=== PATIENT | female | born 1955 | race Caucasian/White ===

== ENCOUNTER → 2017-12-12 15:01 | Outpatient (CLI) | payer MEDICAID, SELFPAY ==
[2017-12-12 17:29] LABS: ALB/GLOB Ratio 0.8 RATIO (0.9-2.4); AST(SGOT) 14 U/L (15-37); Alanine Aminotransfer ALT/SGPT 24 U/L (13-56); Albumin, Serum 3.2 g/dL (3.2-5.0); Alkaline Phosphatase 94 U/L (45-117); Anion Gap 11 (5-15); BUN 15 mg/dL (7-18); BUN/Creat Ratio 14.2 RATIO (10-20); Calcium,Total 8.6 mg/dL (8.5-10.1); Chloride 100 mmol/L (98-107); Creatinine, Serum 1.06 mg/dL (0.55-1.02); EST Glomerular Filtration Rate 56 mL/min (>60); Est Glom Filt Rate - Afr Amer 68 mL/min (>60); Glucose 176 mg/dL (74-106); Potassium 4.3 mmol/L (3.5-5.1); Protein, Total 7.2 g/dL (6.4-8.2); Sodium Level 140 mmol/L (136-145)
== END ==
PROVIDERS: Family Provider Family Medicine; PCP Family Medicine; Visit Provider Family Medicine
DX: E11.9 Type 2 diabetes mellitus without complications (principal); J44.9 Chronic obstructive pulmonary disease, unspecified; M79.7 Fibromyalgia
CPT/HCPCS: 36415; 80053; 83036

== ENCOUNTER → 2020-03-04 14:50 | Outpatient (CLI) | payer MEDICAID, SELFPAY ==
[2020-03-04 14:58] VITALS: BMI 32.9
[2020-03-04 17:21] LABS: Absolute Lymphocyte Count 1.75 X10^3/uL (0.83-4.51); Absolute Neutrophil Count 8.4 X10^3/uL (2.0-7.7); Basophil# 0.06 X10^3/uL; Basophil% 0.5 % (0-1); Eosinophil# 0.08 X10^3/uL; Eosinophils% 0.7 % (0-5); Hematocrit 40.7 % (37-47); Hemoglobin 12.1 g/dL (12.0-15.0); Lymphocyte # 1.75 X10^3/ul (4.0); Lymphocyte % 15.9 % (19-41); Mean Corp Hgb Conc 29.7 g/dL (32-36); Mean Corpuscular Hgb 27.9 pg (27.0-32.0); Mean Platelet Vol. 10.7 fl (6.2-12.0); Monocyte# 0.63 X10^3/uL; Monocyte% 5.7 % (0-10); NRBC Flagged by Analyzer 0 % (0-5); Neutrophil # 8.38 X10^3/uL (2.7-7.7); Neutrophil % 76.1 % (47-70); Platelet Count 344 K/mm3 (150-450); RBC Distribution Width CV 13.1 % (11.6-14.6); RBC Distribution Width SD 45.1 fl (35.1-43.9); Red Blood Count 4.33 M/mm3 (4.2-5.4)
[2020-03-04 17:42] LABS: ALB/GLOB Ratio 0.8 RATIO (0.9-2.4); AST(SGOT) 11 U/L (15-37); Alanine Aminotransfer ALT/SGPT 19 U/L (13-56); Albumin, Serum 3.2 g/dL (3.2-5.0); Alkaline Phosphatase 124 U/L (45-117); Anion Gap 5 (5-15); BUN 17 mg/dL (7-18); BUN/Creat Ratio 16.7 RATIO (10-20); Chloride 94 mmol/L (98-107); Cholesterol 205 mg/dL (200); Creatinine, Serum 1.02 mg/dL (0.55-1.02); EST Glomerular Filtration Rate 58 mL/min (>60); Est Glom Filt Rate - Afr Amer 70 mL/min (>60); Glucose 326 mg/dL (74-106); High Density Lipoprotein 60 mg/dL; Potassium 4.3 mmol/L (3.5-5.1); Protein, Total 7.2 g/dL (6.4-8.2); Sodium Level 137 mmol/L (136-145); Triglycerides 367 mg/dL; Very Low Density Lipoprotein 73 mg/dL (5-40)
[2020-03-04 17:46] LABS: Hemoglobin A1c 10.7 % (3.8-5.6)
== END ==
PROVIDERS: PCP Family Medicine; Referring Provider Family Medicine; Visit Provider Family Medicine
DX: E11.40 Type 2 diabetes mellitus with diabetic neuropathy, unspecified (principal)
CPT/HCPCS: 36415; 80053; 80061; 83036; 85025

== ENCOUNTER 2020-11-06 10:45 | Emergency (ER) | payer MEDICAID, SELFPAY ==
[2020-07-29 09:16] VITALS: BMI 32.9
[2020-11-06 10:46] VITALS: BP 90/52; PULSE 96; RESP 18; TEMP 36.2; O2SAT 94; BMI 26.9
--- NOTE | 2020-11-06 11:13 | EDS_ITS ---
HPI History of Present Illness Chief Complaint: Shortness of Breath Detail of Chief Complaint: Fall with injury to right posterior ribs Informant: patient Narrative Narrative: Patient presents to the emergency department after sustaining a fall last evening. Patient states that she was at her daughter's house and tripped on the rug in front of the toilet falling into the tub and injuring her right posterior ribs. She denies loss of consciousness. She complains of pain with deep breath now. She states that she is always short of breath because she has COPD. She is normally on 4 L of home O2. Patient does not think she hit her he ad. She denies headache or neck pain. She denies abdominal pain. Prior similar symptoms: No [facility] Medical History (Updated 11/06/20 @ 12:[address] Mikhail Patel DO) Arthritis Back problem Chronic pain COPD (chronic obstructive pulmonary disease) CVA (cerebral vascular accident) Diabetes Diabetic neuropathy Fibromyalgia Lung cancer Pneumonia Home Medications glipizide 2.5 mg tablet, extended release 24 hr 2.5 mg PO DAILY #90 tab 05/06/19 [Rx Last Taken Unknown] blood sugar diagnostic ea 05/14/19 [History Last Taken Unknown] blood-glucose meter #1 ea 05/14/19 [Rx Last Taken Unknown] lancets 30 gauge ea 05/14/19 [History Last Taken Unknown] fluticasone propionate 50 mcg/actuation nasal spray,suspension 2 spray INTRANASAL DAILY #15.8 g 11/18/19 [Rx Last Taken Unknown] mometasone-formoterol HFA 200 mcg-5 mcg/actuation aerosol inhaler 2 puff INHALATION BID #13 g 12/24/19 [Rx Last Taken Unknown] albuterol sulfate 90 mcg/actuation aerosol inhaler 2 puff INHALATION Q6H PRN #18 g 01/23/20 [Rx Last Taken Unknown] hydrochlorothiazide 12.5 mg capsule 12.5 mg PO QDAY #90 cap 01/23/20 [Rx Last Taken Unknown] olopatadine 0.2 % eye drops 1 drp OPHTHALMIC DAILY #2.5 ml 03/04/20 [Rx Last Taken Unknown] glipizide 2.5 mg tablet, extended release 24 hr 2.5 mg PO DAILY #90 tab 03/09/20 [Rx Last Taken Unknown] metformin 500 mg tablet 500 mg PO BID #180 tab 05/13/20 [Rx Last Taken Unknown] sitagliptin 100 mg tablet 100 mg PO DAILY #90 tab 06/07/20 [Rx Last Taken Unknown] atorvastatin 20 mg tablet 20 mg PO DAILY #90 tab 07/29/20 [Rx Last Taken Unknown] clopidogrel 75 mg tablet 75 mg PO DAILY 08/18/20 [History Last Taken Unknown] sertraline 50 mg tablet 50 mg PO DAILY #90 tablet 08/18/20 [Rx Last Taken Unknown] gabapentin 600 mg tablet See Rx Instructions .ROUTE .COMPLEX #180 unspecified 10/19/20 [Rx Last Taken Unknown] dulaglutide 1.5 mg/0.5 mL subcutaneous pen injector 1.5 mg SC QWEEK #2 ml 10/26/20 [Rx Last Taken Unknown] zolpidem 10 mg tablet 10 mg PO QHS PRN #30 tab 11/02/20 [Rx Last Taken Unknown] hydrocodone-acetaminophen 1 tab PO Q4H PRN PRN 2 Days #15 tablet 11/06/20 [Rx Last Taken Unknown] Allergy/AdvReac Type Severity Reaction Status Date / Time No Known Allergies Allergy Verified 11/06/20 10:46 Family History Mother Alcohol abuse Angina pectoris Anxiety Arthritis Depression Myocardial infarction Heart disease Mental disorder CVA (cerebral vascular accident) Suicide attempt Father Myocardial infarction Hypertension CVA (cerebral vascular accident) Grandmother Arthritis Surgical History History of cholecystectomy History of hysterectomy History of right common carotid artery stent placement Social History (Updated 08/18/20 @ 14:[address] Isak Taylor DO) Smoking Status: Former smoker how long ago did patient quit smokin alcohol intake: never substance use type: does not use what type of physical activity do you participate in: none ROS ROS ED Constitutional Constitutional ED: Reports systems reviewed and no addt'l complaints, except as documented; Denies body ache(s), change in weight or chills Eyes Eyes: Denies acute decrease in peripheral vision, change in vision, double vision or loss of vision ENT ENT ED: Reports none; Denies ear pain, lip swelling, loss taste/smell, neck pain, otalgia or sore throat Cardiovascular Cardiovascular: Reports none; Denies abdominal pain, chest pain with activity, leg edema, lightheadedness, palpitations, rapid heart rate or syncope Respiratory/Chest Respiratory/Chest: Reports none; Denies change in mental status, dry cough, dyspnea, hemoptysis, shortness of breath at rest or shortness of breath with exertion Gastrointestinal Gastrointestinal: Reports none; Denies abdominal pain, change in stool character, diarrhea, hematemesis, hematochezia, melena, rectal bleeding or vomiting Genitourinary Genitourinary ED: Reports none; Denies abdominal discomfort, anuria, dysuria, genital pain or polyuria Musculoskeletal Musculoskeletal: Reports none and other Details: Back pain/right posterior rib pain ; Denies arthralgias, back pain, difficulty walking, extremity pain, muscle weakness or myalgias Integumentary Reports none; Denies abscess or rash Neurologic Neurologic: Reports none; Denies abnormal gait, confusion, focal weakness, frequent falls, headache(s), loss of vision, numbness, paresthesias, radicular pain, vertigo or weakness Psychiatric Psychiatric: Reports systems reviewed and no addt'l complaints, except as documented and none; Denies behavioral changes, confusion, difficulty concentrating, hallucinations, suicidal ideation, tactile hallucinations or visual hallucinations Endocrine Endocrinology: Denies none, cold intolerance, excessive sweating, fatigue or heat intolerance Hematologic/Lymphatic Hematologic/Lymphatic: Reports none; Denies anemia, easy bleeding or easy bruising Allergic/Immunologic Allergic/Immunologic ED: Denies as per HPI, none, lip swelling, mouth swelling, throat swelling, tongue swelling or hives EXAM Physical Exam Const Vital Signs: 11/06/20 10:46 11/06/20 11:25 Temperature 97.2 F L Temperature Source Temporal Pulse Rate 96 Respiratory Rate 18 Respiratory Effort Normal Non-Labored Respiratory Depth Normal Respiratory Pattern Normal Blood Pressure 90/52 L Blood Pressure Mean 64 Pulse Ox 94 Oxygen Delivery Method Nasal Cannula Nasal Cannula Oxygen Flow Rate (L/min) 4 4 Positive well nourished and well developed General Appearance ED: well developed and NAD HEENT Reports TM's clear and moist mucous membranes normocephalic and atraumatic; Negative for trauma or tenderness Tympanic Membrane ED: Yes TM's clear Eyes PERRL and EOMs intact bilaterally General Eye ED: Negative for pale conjunctiva or scleral icterus Neck no lymphadenopathy, supple and no JVD General: Negative for tenderness Chest Wall inspection of chest normal and palpation of chest normal Chest: Negative for tenderness Resp normal respiratory effort and clear to auscultation bilaterally Effort and Inspection: Negative for respiratory distress or pain with movement Auscultation: Negative for rhonchi, wheezes or diminished lung sounds Cardio regular rate, regular rhythm, S1 normal heart sound, S2 normal heart sound and no murmurs Peripheral Pulses: pulses 2+ throughout GI normal to inspection, nondistended, normoactive bowel sounds, soft to palpation, non-tender, non-distended and no masses Back/Spine no CVA tenderness and no thoracic nor lumbar tenderness Back/Spine Narrative: Patient has tenderness palpation over the right posterior ribs. There is no ecchymosis or bruising. No subcutaneous emphysema noted. Extremity normal to inspection General Extremety ED: Negative for edema General Extremity: Negative for edema Neuro oriented x3, CN's II-XII intact bilaterally, no sensory deficits noted and gait normal Sensorium / Orientation: awake, alert, oriented to person, oriented to place and oriented to time Motor Exam: strength 5/5 throughout and strength abnormal Psych mental status grossly normal Skin no rashes or lesions noted and no wounds MDM MDM MDM Narrative Medical decision making narrative: Patient without evidence of rib fractures on x-rays. She received 1 [place] for pain and had good pain relief with that. At this point she is advised to follow-up with her primary care physician in 3 to 5 days. She is given a prescription for [place] for pain. He is advised to return to the ER if worsening pain or conditions worsen anyway. Radiography Diagnostic Testing: Radiology Impression Ribs w/Chest X-Ray 11/06/20 11:35 IMPRESSION: Negative chest and right ribs series. at 1220 Reported and signed by: Rob San MD Electronically Signed: Rob San MD at 12:19 EDT Tel , Service support , Three-view x-rays of right ribs and AP chest interpreted by myself as no acute fractures and no evidence of pneumothorax. Radiology in agreement. Discharge Plan Triage Chief Complaint: Shortness of Breath ED Provider: Mikhail Patel Dx/Rx/DC Orders Clinical Impression: Contusion of rib Instructions: ED Rib Contusion or Minor Fracture Prescriptions: New hydrocodone-acetaminophen [hydrocodone-acetaminophen] 1 TABLET tablet 1 tab PO Q4H PRN PRN (Reason: Pain) 2 Days Qty: 15 RF: 0 No Action glipizide 2.5 mg tablet extended release 24hr 2.5 mg PO DAILY Qty: 90 RF: 1 Hold Instructions: Order Changed (DME) Blood Glucose Test Strip See Rx Instructions .ROUTE .MEDSUPPLY RF: 0 (DME) lancets 30 gauge misc See Rx Instructions .ROUTE .MEDSUPPLY RF: 0 fluticasone propionate [Flonase Allergy Relief] 50 mcg/actuation sp ray,suspension 2 spray intranasal DAILY Qty: 15.8 RF: 1 olopatadine [Pataday] 0.2 % drops 1 drp OPHTHALMIC DAILY Qty: 2.5 RF: 1 clopidogrel [Plavix] 75 mg tablet 75 mg PO DAILY RF: 0 sertraline 50 mg tablet 50 mg PO DAILY Qty: 90 RF: 1 (DME) blood-glucose meter Misc See Rx Instructions .ROUTE .MEDSUPPLY Qty: 1 RF: 0 Dulera 200-5 mcg/actuation HFA aerosol inhaler 2 puff INHALATION BID Qty: 13 RF: 6 Ventolin HFA 90 mcg/actuation HFA aerosol inhaler 2 puff INHALATION Q6H PRN (Reason: shortness of breath) Qty: 18 RF: 2 hydrochlorothiazide 12.5 mg capsule 12.5 mg PO QDAY Qty: 90 RF: 2 glipizide 2.5 mg tablet extended release 24hr 2.5 mg PO DAILY Qty: 90 RF: 1 metformin 500 mg tablet 500 mg PO BID Qty: 180 RF: 1 Januvia 100 mg tablet 100 mg PO DAILY Qty: 90 RF: 1 atorvastatin 20 mg tablet 20 mg PO DAILY Qty: 90 RF: 1 gabapentin 600 mg tablet See Rx Instructions .ROUTE .COMPLEX Qty: 180 RF: 0 Trulicity 1.5 mg/0.5 mL pen injector 1.5 mg SC QWEEK Qty: 2 RF: 1 zolpidem 10 mg tablet 10 mg PO QHS PRN (Reason: insomia) Qty: 30 RF: 0 Primary Care Provider: Isak Taylor Referrals: Isak Taylor, [Primary Care Provider] - 3-5 Days Disposition Disposition: Home, Self Care
[2020-11-06] MEDS: HYDROcodone Bitartrate/Apap 5/325 Tablet PO (11:21)
[2020-11-06 11:25] VITALS: O2SAT 100
--- NOTE | 2020-11-06 11:35 | RAD_ITS ---
EXAM: XR RIGHT RIBS AND AP CHEST, 3 OR MORE VIEWS : 1955 CLINICAL INDICATION: fall TECHNIQUE: Frontal and oblique views of the right ribs and frontal view of the chest. This report was created using [employer] report generation technology. COMPARISON: None. FINDINGS: LUNGS AND PLEURAL SPACES: Unremarkable. No consolidation or edema. No pneumothorax. No effusion. HEART: Unremarkable. Cardiac silhouette not enlarged. MEDIASTINUM: Central airways and mediastinal contour are unremarkable. BONES/JOINTS: Unremarkable. No evidence of displaced rib fractures. RAD/Ribs Uni Min 3V w/PA Chest IMPRESSION: Negative chest and right ribs series. at 1220 Reported and signed by: Rob San MD Electronically Signed: Rob San MD at 12:19 EDT Tel , Service support ,
[2020-11-06 13:02] VITALS: PULSE 89; RESP 21; O2SAT 100
== END 2020-11-06 13:03 | disposition home or self-care (01) ==
PROVIDERS: Emergency Provider Emergency Medicine; PCP Family Medicine
DX: S20.211A Contusion of right front wall of thorax, initial encounter (principal); W01.198A Fall on same level from slipping, tripping and stumbling with subsequent striking against other object, initial encounter; Y93.9 Activity, unspecified; Y92.002 Bathroom of unspecified non-institutional (private) residence as the place of occurrence of the external cause; Y99.9 Unspecified external cause status; J44.9 Chronic obstructive pulmonary disease, unspecified; E11.40 Type 2 diabetes mellitus with diabetic neuropathy, unspecified; M19.90 Unspecified osteoarthritis, unspecified site; M79.7 Fibromyalgia; G89.29 Other chronic pain; Z79.02 Long term (current) use of antithrombotics/antiplatelets; Z79.84 Long term (current) use of oral hypoglycemic drugs; Z79.51 Long term (current) use of inhaled steroids; Z79.899 Other long term (current) drug therapy; Z87.891 Personal history of nicotine dependence; Z86.73 Personal history of transient ischemic attack (TIA), and cerebral infarction without residual deficits; Z85.118 Personal history of other malignant neoplasm of bronchus and lung
CPT/HCPCS: 71101; 99283

== ENCOUNTER → 2020-12-02 15:36 | Outpatient (CLI) | payer MEDICAID, SELFPAY ==
[2020-12-02 14:59] VITALS: BMI 26.9
[2020-12-02 16:35] LABS: Absolute Lymphocyte Count 1.31 X10^3/uL (0.83-4.51); Absolute Neutrophil Count 8.9 X10^3/uL (2.0-7.7); Basophil# 0.04 X10^3/uL; Basophil% 0.4 % (0-1); Eosinophil# 0.14 X10^3/uL; Eosinophils% 1.2 % (0-5); Hematocrit 33.4 % (37-47); Hemoglobin 8.6 g/dL (12.0-15.0); Lymphocyte # 1.31 X10^3/ul (0.83-4.51); Lymphocyte % 11.5 % (19-41); Mean Corp Hgb Conc 25.7 g/dL (32-36); Mean Corpuscular Hgb 19.7 pg (27.0-32.0); Mean Corpuscular Volume 76.6 fL (81-99); Mean Platelet Vol. 10.5 fl (6.2-12.0); Monocyte# 0.94 X10^3/uL; Monocyte% 8.2 % (0-10); NRBC Flagged by Analyzer 0 % (0-5); Neutrophil # 8.85 X10^3/uL (2.7-7.7); Neutrophil % 77.6 % (47-70); Platelet Count 438 K/mm3 (150-450); RBC Distribution Width CV 17.2 % (11.6-14.6); RBC Distribution Width SD 47.3 fl (35.1-43.9); Red Blood Count 4.36 M/mm3 (4.2-5.4); White Blood Count 11.4 K/mm3 (4.4-11.0)
[2020-12-02 16:48] LABS: ALB/GLOB Ratio 0.7 RATIO (0.9-2.4); AST(SGOT) 7 U/L (15-37); Alanine Aminotransfer ALT/SGPT 12 U/L (13-56); Albumin, Serum 3.2 g/dL (3.2-5.0); Alkaline Phosphatase 120 U/L (45-117); Anion Gap 7 (5-15); BUN 13 mg/dL (7-18); BUN/Creat Ratio 16.8 RATIO (10-20); Calcium,Total 9.8 mg/dL (8.5-10.1); Chloride 102 mmol/L (98-107); Creatinine, Serum 0.78 mg/dL (0.55-1.02); EST Glomerular Filtration Rate 80 mL/min (>60); Est Glom Filt Rate - Afr Amer 96 mL/min (>60); Globulin 4.4 g/dL (2.2-4.2); Glucose 117 mg/dL (74-106); Potassium 4.6 mmol/L (3.5-5.1); Protein, Total 7.6 g/dL (6.4-8.2); Sodium Level 142 mmol/L (136-145)
[2020-12-02 17:10] LABS: Hemoglobin A1c 6.2 % (3.8-5.6)
== END ==
PROVIDERS: PCP Family Medicine; Referring Provider Family Medicine; Visit Provider Family Medicine
DX: C34.90 Malignant neoplasm of unspecified part of unspecified bronchus or lung (principal); E11.9 Type 2 diabetes mellitus without complications
CPT/HCPCS: 80053; 83036; 85025

== ENCOUNTER → 2020-12-29 13:39 | Outpatient (CLI) | payer MEDICAID, SELFPAY ==
[2020-12-29 15:00] LABS: Absolute Lymphocyte Count 0.87 X10^3/uL (0.83-4.51); Absolute Neutrophil Count 9.6 X10^3/uL (2.0-7.7); Basophil# 0.03 X10^3/uL; Basophil% 0.3 % (0-1); Eosinophil# 0.07 X10^3/uL; Eosinophils% 0.6 % (0-5); Hematocrit 32.9 % (37-47); Hemoglobin 8.8 g/dL (12.0-15.0); Lymphocyte # 0.87 X10^3/ul (0.83-4.51); Lymphocyte % 7.8 % (19-41); Mean Corp Hgb Conc 26.7 g/dL (32-36); Mean Corpuscular Hgb 20.4 pg (27.0-32.0); Mean Corpuscular Volume 76.2 fL (81-99); Mean Platelet Vol. 10.4 fl (6.2-12.0); Monocyte# 0.45 X10^3/uL; NRBC Flagged by Analyzer 0 % (0-5); Neutrophil # 9.55 X10^3/uL (2.7-7.7); Platelet Count 373 K/mm3 (150-450); RBC Distribution Width CV 18.6 % (11.6-14.6); Red Blood Count 4.32 M/mm3 (4.2-5.4); White Blood Count 11.1 K/mm3 (4.4-11.0)
[2020-12-29 15:26] LABS: Iron 22 ug/dL (50-170); Iron Binding Capacity,Total 367 ug/dL (250-450); Thyroid Stim Hormone (TSH) 0.65 uIU/mL (0.358-3.74)
== END ==
PROVIDERS: PCP Family Medicine; Referring Provider Nurse Practitioner Family; Visit Provider Nurse Practitioner Family
DX: E11.9 Type 2 diabetes mellitus without complications (principal); J44.9 Chronic obstructive pulmonary disease, unspecified; M79.7 Fibromyalgia; D64.9 Anemia, unspecified
CPT/HCPCS: 36415; 83540; 83550; 84443; 85025

== ENCOUNTER → 2021-01-05 | Outpatient (CLI) | payer MEDICAID, SELFPAY | END | disposition home or self-care (01) | LOC: LABSPEC 15:32 | PROVIDERS: PCP Family Medicine; Referring Provider Nurse Practitioner Family; Visit Provider Nurse Practitioner Family | DX: D50.9 Iron deficiency anemia, unspecified (principal) | CPT/HCPCS: 82274 ==

== ENCOUNTER 2021-01-31 12:02 | Day surgery (SDC) | payer MEDICAID, SELFPAY ==
[2021-01-31] VITALS (7 sets, daily range): BP systolic 137–166; BP diastolic 71–94; PULSE 96–109; RESP 18–24; TEMP 36.3–36.6; O2SAT 100; BMI 26.9
[2021-01-31] MEDS: Lactated Ringers 1,000 ML 100 ML IV (12:57)
[2021-01-31 13:05] LABS: Bedside Glucose 117 mg/dL (70-110)
--- NOTE | 2021-01-31 13:22 | PCM.HP.BLA ---
History and Physical Date of Admission: 01/31/21 Date of Service: 01/13/21 MR#:[id number]: SILVANO CLAY ARe #:[id number]:1955 Provider:Jamal Hill/Sex: 65/F [facility] Intake Vital Signs 01/13/21 14:08 Height 5 ft 3 in Weight: 153 lb 4 oz BMI 27.1 BP 128/69 H Blood Pressure Location Rt brachial Position Sitting Respiration 20 H Pulse 92 Pulse Source NIBP Temp 98.1 F Temp Source Temporal Pulse Oximetry (%) 99 Oxygen Delivery Method nasal canula Intake Visit Reasons: ANEMIA, GI HEMORRHAGE Chief Complaint: anemia Master Printer Required: No Is patient in pain?: No Allergies No Known Allergies Allergy (Verified 01/13/21 14:09) Medications glipizide 2.5 mg tablet, extended release 24 hr 2.5 mg PO DAILY #90 tab 05/06/19 [Rx Confirmed 01/13/21] fluticasone propionate 50 mcg/actuation nasal spray,suspension 2 spray INTRANASAL DAILY #15.8 g 11/18/19 [Rx Confirmed 01/13/21] albuterol sulfate 90 mcg/actuation aerosol inhaler 2 puff INHALATION Q6H PRN #18 g 01/23/20 [Rx Confirmed 01/13/21] hydrochlorothiazide 12.5 mg capsule 12.5 mg PO QDAY #90 cap 01/23/20 [Rx Confirmed 01/13/21] olopatadine 0.2 % eye drops 1 drp OPHTHALMIC DAILY #2.5 ml 03/04/20 [Rx Confirmed 01/13/21] glipizide 2.5 mg tablet, extended release 24 hr 2.5 mg PO DAILY #90 tab 03/09/20 [Rx Confirmed 01/13/21] sitagliptin 100 mg tablet 100 mg PO DAILY #90 tab 06/07/20 [Rx Confirmed 01/13/21] atorvastatin 20 mg tablet 20 mg PO DAILY #90 tab 07/29/20 [Rx Confirmed 01/13/21] clopidogrel 75 mg tablet 75 mg PO DAILY 08/18/20 [History Confirmed 01/13/21] sertraline 50 mg tablet 50 mg PO DAILY #90 tablet 08/18/20 [Rx Confirmed 01/13/21] metformin 500 mg tablet 500 mg PO BID #180 tab 11/29/20 [Rx Confirmed 01/13/21] zolpidem 10 mg tablet 10 mg PO QHS PRN #30 tab 12/01/20 [Rx Confirmed 01/13/21] fluticasone fur. 100 mcg-umeclid 62.5 mcg-vilant 25 mcg inhalat.powder 1 inh INHALATION DAILY #60 ea 12/02/20 [Rx Confirmed 01/13/21] gabapentin 600 mg tablet See Rx Instructions .ROUTE .COMPLEX #180 unspecified 12/02/20 [Rx Confirmed 01/13/21] hydrocodone-acetaminophen 5-325mg 5mg-325mg 1 tab PO Q6H PRN 30 Days #90 tab 12/27/20 [Rx Confirmed 01/13/21] blood sugar diagnostic #100 ea 12/29/20 [Rx Confirmed 01/13/21] blood-glucose meter #1 ea 12/29/20 [Rx Confirmed 01/13/21] dulaglutide 1.5 mg/0.5 mL subcutaneous pen injector 1.5 mg SC QWEEK #2 ml 12/29/20 [Rx Confirmed 01/13/21] lancets 30 gauge #200 ea 12/29/20 [Rx Confirmed 01/13/21] ferrous sulfate 325 mg (65 mg iron) tablet 325 mg PO DAILY #90 tab 12/30/20 [Rx Confirmed 01/13/21] amoxicillin 875 mg-potassium clavulanate 125 mg tablet 1 tab PO BID 10 Days #20 tab 01/13/21 [Rx Confirmed 01/13/21] Is last menstrual period known: No Post menopausal: Yes Patient : No PFSH Medical History Arthritis Back problem Chronic pain COPD (chronic obstructive pulmonary disease) CVA (cerebral vascular accident) Diabetes Diabetic neuropathy Fibromyalgia MARY (iron deficiency anemia) Insomnia Lung cancer Pneumonia Type 2 diabetes mellitus Surgical History History of cholecystectomy History of hysterectomy History of right common carotid artery stent placement Family History Mother Alcohol abuse Angina pectoris Anxiety Arthritis Depression Myocardial infarction Heart disease Mental disorder CVA (cerebral vascular accident) Suicide attempt Father Myocardial infarction Hypertension CVA (cerebral vascular accident) Grandmother Arthritis Social History Smoking Status: Former smoker how long ago did patient quit smokin alcohol intake: never substance use type: does not use what type of physical activity do you participate in: none HPI HPI HPI: SILVANO CLAY, is a 65 F who presents to the office today for need to schedule diagnostic colonoscopy secondary to incidentally discovered anemia?that. Patient's most recent hemoglobin is 8.8 g/dL and 2 of 3 Hemoccult stool studies were positive. They are referred for surgical consultation from Dr. Taylor and Mr. Keerthi NP. Patient has had prior colonoscopy over 10 years ago in [place]. This ray remembers the results were unremarkable. Patient has a personal history of diverticulitis?diagnosed many years ago, but denies any diagnoses of inflammatory bowel disease or colon cancer. She complains that she is experienced somewhat frequent abdominal pains in her left lower quadrant. She describes these as occurring approximately 2 times weekly but denies any associated fevers or chills. She describes her bowel habits as regular without straining and she denies noting any blood with these bowel movements. However, she does note she has been told she has hemorrhoids. Patient has family history of colon polyps in both brother and mother. The patient's weight is not stable?daughter states that she believes there is been approximately 39 pound weight loss since a year ago (189 pounds down to 150 pounds). For her part, Ms. Clay remarks that her appetite has been poor lately and her activity level has been quite low for many years. Patient has rather complex medical history. She has a history of lung cancer status post radiation. She has been told she is in remission after undergoing treatment 10 years ago. Additionally, she is diagnosed with end-stage COPD and was evaluated for a lung transplant, but was deemed unfit for the surgery. She requires 4 L nasal cannula at baseline and has been frequently needing more. Her safety and health consultant last saw her in August, and she states she is due for a follow-up visit in the very near future. Additionally Ms. Clay has a history of carotid artery disease and stroke in May. On August 162020 she underwent carotid stenting and was placed on Plavix indefinitely according to her daughter. Lastly she was seen last month for altered mental status after accidentally consuming 4 tabs of Ambien in sequence. She was noted to have very low saturations in the 70s that were not responsive to additional oxygen. It was then she was informed she had tested positive for Covid. This positive test came on December 05, 2020. ROS General General: Yes weight change; No appetite, fatigue, colon cancer, breast cancer or weakness HEENT HEENT: No difficulty swallowing, eye injury, eye surgery, swollen glands or hoarseness Endo Endocrine: Yes diabetes mellitus; No thyroid disease, thyroid cancer, Hair loss, heat intolerance or cold intolerance Musc Musculoskeletal: Yes back problems and arthritis; No rheumatoid arthritis, gout or joint pain Cardio Cardiovascular: Yes high blood pressure; No murmur, pacemaker, heart disease, atrial fibrillation, heart attack, heart stent, palpitations, shortness of breat with exertion or chest pain Psych Psychiatric: No depression, anxiety or hearing voices Resp Respiratory: Yes shortness of breath, No sleep apnea, Yes cough, Yes COPD, No asthma, Yes emphysema and No wheezing Gastro Gastrointestinal: No abdominal pain, No nausea or vomiting, No diarrhea, Yes constipation, Yes blood in stool, No acid reflux, Yes hemorrhoids, No ulcers, No gallbladder problem and No black,tarry stools Cisco Hematologic: Yes blood thinners, No blood disorders, No bleeding, Yes anemia and No blood clots Neuro Neurologic: No weakness Exam Const General: anxious, frail appearing and ill appearing Orientation: oriented x3 and oriented to person Resp Effort & Inspection: labored Auscultation: clear to auscultation bilaterally, no rales, no rhonchi and no wheezes Cardio Rate: tachycardic Rhythm: regular rhythm GI Inspection: scar (Subcostal and lower midline now well-healed) and no visible herniation Palpation: soft and tender in the LLQ Assessment and Plan Assessment and Plan (1) Diverticulitis large intestine: Status: Acute Qualifiers: Diverticulitis bleeding: unspecified bleeding status Diverticulitis complication: without perforation or abscess Qualified Code(s): K57.32 - Diverticulitis of large intestine without perforation or abscess without bleeding Comment: Patient with history of diverticulitis and recurrent pains in the left lower quadrant on exam. Given her need for scope in a semiurgent fashion, I would like to begin her empirically on antibiotics. I have prescribed 10 days of Augmentin to her preferred pharmacy. Plan - Dr. Herbert Joyce MD: 10-day course of Augmentin (2) MARY (iron deficiency anemia): Status: Acute Qualifiers: Iron deficiency anemia type: unspecified iron deficiency Qualified Code(s): D50.9 - Iron deficiency anemia, unspecified Comment: Patient with newly diagnosed iron deficiency anemia. Asymptomatic from anemia but according to both patient and her daughter she has very poor activity status at baseline following radiation for lung cancer 10 years ago which is now in remission. History does not reveal any concerns for overt bleeding, but patient did have 2 of 3 Hemoccult studies return positive. Additionally, patient remarks of recent weight loss. Colonoscopic investigation is warranted, however, patient's other medical issues need to be optimized/addressed as well. To this end, patient is encouraged to make follow-up with her safety and health consultant to ensure she is safe for sedation. We have reached out to patient's vascular surgeon, Dr. Mccann regarding preference for stopping Plavix in a periprocedural manner. I have prescribed 10 days of antibiotics for clinical concern for diverticular flare. Plan - Dr. Herbert Joyce MD: Tentatively plan for colonoscopy in 2 weeks if patient able to be medically optimized/cleared during this time. Patient will require 1 week off Plavix. I did discuss our split prep and need for a dumpcart driver the day of the procedure. We will work with the patient's daughter, regarding scheduling. Plan Details Other Medications: New: amoxicillin-pot clavulanate 875-125 mg (Augmentin) 1 TAB PO BID 10 days 20 tabs 0RF diverticulitis Coding Level of Care Code Off vis,est,level 4 Diagnoses Diverticulitis large intestine K57.32 Diverticulitis bleeding: unspecified bleeding status Diverticulitis complication: without perforation or abscess MARY (iron deficiency anemia) D50.9 Iron deficiency anemia type: unspecified iron deficiency Time Spent (min) 35 01/13/21 1506<Electronically signed by Herbert Joyce MD> I have re-examined the patient. There are no clinical changes since date of exam. Patient confirms (along with her daughter) that they stopped patient's Plavix 1 week ago in preparation for today's scope. Ms. Clay also confirms that her output has been clear since completing her prep yesterday. Plan to proceed with colonoscopy under local MAC as previously discussed.
--- NOTE | 2021-01-31 14:15 | COLBX_PTH ---
PATIENT: SILVANO DELCID LOC: EN U#:[id number] AGE/SX: 65/F ROOM: RE01/31/[address]: Dr. Herbert Joyce MD : 1955 BED: DIS: 01/31/2021 SPEC #: [id number] RECD: 01/31/21 19:00 STATUS: RE CRYSTAL #: [id number] SHAYNE: 01/31/21 14:[address]: Herbert Joyce DEPT: SURGICAL PATHOLOGY RECD BY: Gaurang Trevizo ENTERED: 02/01/21 10:04 SP TYPE: COLON BX OTHR DR: Dr. Isak Taylor DO Tissues: A - Ascending colon B - Transverse colon Procedures: Surgery Specimen Level IV HEADER OPERATION: Colonoscopy (MAC) PRE-OP DIAGNOSIS: Diverticulitis large intestine, iron deficiency anemia TISSUE SUBMITTED: A ? Ascending polyp, B ? Distal transverse polyp MICROSCOPIC DIAGNOSIS A. Ascending colon polyp, biopsy: Cauterized fragments of colonic mucosa with adenomatous change. B. Distal transverse colon polyp, biopsy: Fragments of tubular adenoma. AM:bharat 02/02/2021 MICROSCOPIC DESCRIPTION Slides are reviewed. GROSS DESCRIPTION A - Received in fixative is one container labeled with the patient's name and designated ascending polyp. The specimen consists of one irregular fragment of light kelly soft tissue that measures 0.4 x 0.3 x 0.1 cm. The specimen is totally submitted in one cassette. B - Received in fixative is one container labeled with the patient's name and designated distal transverse polyp. The specimen consists of multiple irregular fragments of light kelly soft tissue that in aggregate measure 1.5 x 0.5 x 0.1 cm. The specimen is totally submitted in one cassette. / SJ:bharat 02/01/21 TC:5 CPT: 80987 x2
--- NOTE | 2021-01-31 17:31 | OP.COLON_ITS ---
Patient Name: Hortencia Clay Procedure Date: 01/31/2021 1:34 PM Date of : 1955 Age: 65 Procedure: Colonoscopy Indications: Iron deficiency anemia Providers: Herbert Joyce MD Medicines: See the Anesthesia note for documentation of the administered medications Patient Profile: Refer to note in patient chart for documentation of history and physical. Last Colonoscopy: more than 3 years ago. Complications: No immediate complications. Estimated blood loss: Minimal. Procedure: Pre-Anesthesia Assessment: - Prior to the procedure, a History and Physical was performed, and patient medications and allergies were reviewed. The patient's tolerance of previous anesthesia was also reviewed. The risks and benefits of the procedure and the sedation options and risks were discussed with the patient. All questions were answered, and informed consent was obtained. Prior Anticoagulants: The patient last took Plavix (clopidogrel) 7 days prior to the procedure. ASA Grade Assessment: IV - A patient with severe systemic disease that is a constant threat to life. After reviewing the risks and benefits, the patient was deemed in satisfactory condition to undergo the procedure. - The heart rate, respiratory rate, oxygen saturations, blood pressure, adequacy of pulmonary ventilation, and response to care were monitored throughout the procedure. After I obtained informed consent, the scope was passed under direct vision. Throughout the procedure, the patient's blood pressure, pulse, and oxygen saturations were monitored continuously. The colonoscope was introduced through the anus and advanced to the cecum, identified by the ileocecal valve. The colonoscopy was technically difficult and complex due to multiple diverticula in the colon. Successful completion of the procedure was aided by withdrawing and reinserting the scope. The quality of the bowel preparation was fair. The patient tolerated the procedure fairly well. The entire colon was well visualized. The colonoscopy was technically difficult and complex due to sigmoid colon stricture at 30cm. Solution: switch to pediatric colonoscope Scope In: 3:17:49 PM Scope Withdrawal Time 0 hours 41 minutes 33 seconds Scope Out: 5:15:49 PM Total Procedure Duration Time 1 hour 58 minutes 0 seconds Findings: Multiple medium-sized patchy angiodysplastic lesions without bleeding were found in the ascending colon. No biopsies or other specimens were collected for this exam. 1 pedunculated, non-bleeding polyps were found in the distal ascending colon. The polyps were 7 mm in size. These polyps were removed with a hot snare. Resection and retrieval were complete. To prevent bleeding after the polypectomy, one hemostatic clip was successfully placed. There was no bleeding at the end of the procedure. A 10 mm polyp was found in the distal transverse colon. The polyp was pedunculated. Polypectomy was attempted, initially using a hot snare. Polyp resection was incomplete with this device. This intervention then required a different device and polypectomy technique. The polyp was removed with a hot snare. Resection and retrieval were complete. Estimated blood loss was minimal. Multiple medium-mouthed diverticula were found in the sigmoid colon. No biopsies or other specimens were collected for this exam. A benign-appearing, intrinsic moderate stenosis measuring 10 cm (in length) x 7 mm (inner diameter) was found in the mid sigmoid colon and was traversed. No biopsies or other specimens were collected for this exam. Non-bleeding external and internal hemorrhoids were found during perianal exam. The hemorrhoids were Grade IV (internal hemorrhoids that prolapse and cannot be reduced manually). No biopsies or other specimens were collected for this exam. Impression: - Preparation of the colon was fair. - Multiple non-bleeding colonic angiodysplastic lesions. No specimens collected. - 1 7 mm, non-bleeding polyps in the distal ascending colon, removed with a hot snare. Resected and retrieved. Clip was placed. - One 10 mm polyp in the distal transverse colon, removed with a hot snare. Resected and retrieved. - Diverticulosis in the sigmoid colon. No specimens collected. - Stricture in the mid sigmoid colon. No specimens collected. - Non-bleeding external and internal hemorrhoids. No specimens collected. Recommendation: - Discharge patient to home (via wheelchair). - Resume regular diet today. - Resume Plavix (clopidogrel) at prior dose in 2 days. - Await pathology results. - Repeat colonoscopy for surveillance based on pathology results. Procedure Code(s): --- Professional --- 40411, Colonoscopy, flexible; with removal of tumor(s), polyp(s), or other lesion(s) by snare technique Diagnosis Code(s): --- Professional --- K64.3, Fourth degree hemorrhoids K55.20, Angiodysplasia of colon without hemorrhage D12.2, Benign neoplasm of ascending colon D12.3, Benign neoplasm of transverse colon (hepatic flexure or splenic flexure) K56.699, Other intestinal obstruction unspecified as to partial versus complete obstruction D50.9, Iron deficiency anemia, unspecified K57.30, Diverticulosis of large intestine without perforation or abscess without bleeding CPT copyright 2017 [employer]. All rights reserved. The codes documented in this report are preliminary and upon contact lens blocker review may be revised to meet current compliance requirements. Herbert Joyce MD 01/31/2021 5:31:13 PM This report has been signed electronically. Number of Addenda: 0 Note Initiated On: 01/31/2021 1:34 PM
--- NOTE | 2021-01-31 17:32 | OP.CCLET_ITS ---
01/31/2021 Isak Taylor Re : Colonoscopy procedure for Hortencia Clay Dear Dr. Tayolr This procedure was performed on Sunday, January 31, 2021. My impressions and recommendations are as follows: Impressions : - Preparation of the colon was fair. - Multiple non-bleeding colonic angiodysplastic lesions. No specimens collected. - 1 7 mm, non-bleeding polyps in the distal ascending colon, removed with a hot snare. Resected and retrieved. Clip was placed. - One 10 mm polyp in the distal transverse colon, removed with a hot snare. Resected and retrieved. - Diverticulosis in the sigmoid colon. No specimens collected. - Stricture in the mid sigmoid colon. No specimens collected. - Non-bleeding external and internal hemorrhoids. No specimens collected. Recommendations : - Discharge patient to home (via wheelchair). - Resume regular diet today. - Resume Plavix (clopidogrel) at prior dose in 2 days. - Await pathology results. - Repeat colonoscopy for surveillance based on pathology results. My findings are described in the full procedure note, which is enclosed. If I can be of further assistance, please feel free to contact me at Doctor phone number(s): , Work: . Sincerely, Herbert Joyce MD 01/31/2021 5:31:13 PM This report has been signed electronically.
== END 2021-01-31 18:33 ==
LOC: EN 12:03 → AC 12:04
PROVIDERS: PCP Family Medicine; Referring Provider Family Medicine; Visit Provider Surgery
PROC: 0DJD8ZZ Inspection of Lower Intestinal Tract, Via Natural or Artificial Opening Endoscopic (ICD-10-PCS; CPT 45378; principal; 2021-01-31 14:10)
DX: K57.30 Diverticulosis of large intestine without perforation or abscess without bleeding (principal); D12.2 Benign neoplasm of ascending colon; D12.3 Benign neoplasm of transverse colon; K55.20 Angiodysplasia of colon without hemorrhage; K56.699 Other intestinal obstruction unspecified as to partial versus complete obstruction; K64.3 Fourth degree hemorrhoids; K64.4 Residual hemorrhoidal skin tags; D50.9 Iron deficiency anemia, unspecified; J44.9 Chronic obstructive pulmonary disease, unspecified; E11.40 Type 2 diabetes mellitus with diabetic neuropathy, unspecified; I10 Essential (primary) hypertension; M79.7 Fibromyalgia; G89.29 Other chronic pain; M19.90 Unspecified osteoarthritis, unspecified site; Z79.84 Long term (current) use of oral hypoglycemic drugs; Z79.02 Long term (current) use of antithrombotics/antiplatelets; Z79.899 Other long term (current) drug therapy; Z78.0 Asymptomatic menopausal state; Z99.81 Dependence on supplemental oxygen; Z86.16 Personal history of COVID-19; Z87.19 Personal history of other diseases of the digestive system; Z85.118 Personal history of other malignant neoplasm of bronchus and lung; Z92.3 Personal history of irradiation; Z87.891 Personal history of nicotine dependence; Z86.73 Personal history of transient ischemic attack (TIA), and cerebral infarction without residual deficits; Z95.5 Presence of coronary angioplasty implant and graft
CPT/HCPCS: 45385; 82962; 88305; J7120; J2405

== ENCOUNTER → 2021-12-28 | Outpatient (CLI) | payer MEDICARE, MEDICAID, SELFPAY ==
[2021-12-28 16:44] LABS: Absolute Lymphocyte Count 1.87 X10^3/uL (0.83-4.51); Absolute Neutrophil Count 7.9 X10^3/uL (2.0-7.7); Basophil# 0.07 X10^3/uL; Basophil% 0.6 % (0-1); Eosinophils% 2.8 % (0-5); Hematocrit 39.7 % (37-47); Hemoglobin 11.8 g/dL (12.0-15.0); Lymphocyte # 1.87 X10^3/ul (0.83-4.51); Lymphocyte % 17.2 % (19-41); Mean Corp Hgb Conc 29.7 g/dL (32-36); Mean Corpuscular Hgb 26.6 pg (27.0-32.0); Mean Corpuscular Volume 89.4 fL (81-99); Mean Platelet Vol. 10.2 fl (6.2-12.0); Monocyte# 0.73 X10^3/uL; Monocyte% 6.7 % (0-10); NRBC Flagged by Analyzer 0 % (0-5); Neutrophil # 7.86 X10^3/uL (2.7-7.7); Neutrophil % 72.1 % (47-70); Platelet Count 383 K/mm3 (150-450); RBC Distribution Width CV 13.1 % (11.6-14.6); RBC Distribution Width SD 43.3 fl (35.1-43.9); Red Blood Count 4.44 M/mm3 (4.2-5.4); White Blood Count 10.9 K/mm3 (4.4-11.0)
== END | disposition home or self-care (01) ==
PROVIDERS: PCP Family Medicine; Referring Provider Family Medicine; Visit Provider Family Medicine
DX: D50.9 Iron deficiency anemia, unspecified (principal)
CPT/HCPCS: 36415; 85025

== ENCOUNTER 2022-02-12 20:28 | Emergency (ER) | payer MEDICARE, MEDICAID, SELFPAY ==
[2022-02-12 20:28] VITALS: BP 104/48; PULSE 78; RESP 14; TEMP 36.2; O2SAT 99; BMI 27.3
[2022-02-12 20:32] VITALS: BP 104/48; PULSE 80; RESP 23; TEMP 36.2; O2SAT 97
[2022-02-12 21:03] VITALS: O2SAT 96
[2022-02-12] MEDS: Albuterol 2.5 MG/3 ML VIAL.NEB. INHALATION (21:08)
[2022-02-12 21:14] VITALS: PULSE 78; RESP 19
--- NOTE | 2022-02-12 21:15 | ED.VIS.DYS ---
HPI History of Present Illness Chief Complaint: Shortness of Breath Informant: patient and EMS Narrative Narrative: Patient has fairly severe COPD. She states she has not been feeling like she has experienced a flareup or an acute illness lately, but she does have a chronic cough and wheezing. She states she was wheezing a little more than usual today but nothing major. She had a coughing fit, no sputum production, but afterward she checked her oxygen levels and she was in the 40% range. She is on 4 L of oxygen, and she was on that. She states she did not come up from the 40s although she did not feel really short of breath, just a little. She called EMS, they gave her a treatment, but her on a nonrebreather, and brought her here. She feels better. Currently upon my evaluation on her home 4 L nasal cannula satting 96-99%. She states she feels like usual. She denies any chest discomfort or tightness today, fevers or chills, leg swelling. [facility] Medical History Allergic conjunctivitis Arthritis Back problem Cardiology follow-up encounter Chronic pain COPD (chronic obstructive pulmonary disease) COVID CVA (cerebral vascular accident) Diabetic neuropathy Diverticulitis large intestine Fibromyalgia Former smoker Hoarseness Hyperlipidemia MARY (iron deficiency anemia) Insomnia Leg cramps Lung cancer On home oxygen therapy Pneumonia Restless legs Shortness of breath on exertion Type 2 diabetes mellitus Uses wheelchair Wears dentures Wears glasses Home Medications sitagliptin 100 mg tablet (Januvia) 100 mg PO DAILY #90 tabs 06/07/20 [Rx Last Taken Unknown] atorvastatin 20 mg tablet 20 mg PO DAILY #90 tabs 07/29/20 [Rx Last Taken Unknown] metformin 500 mg tablet 500 mg PO BID #180 tabs 11/29/20 [Rx Last Taken Unknown] blood sugar diagnostic (Blood Glucose Test strips) #100 ea 12/29/20 [Rx Last Taken Unknown] blood-glucose meter #1 ea 12/29/20 [Rx Last Taken Unknown] lancets 30 gauge #200 ea 12/29/20 [Rx Last Taken Unknown] ferrous sulfate 325 mg (65 mg iron) tablet 325 mg PO DAILY #90 tabs 12/30/20 [Rx Last Taken Unknown] albuterol sulfate 90 mcg/actuation aerosol inhaler (Ventolin HFA) 2 puff inhalation Q6H PRN shortness of breath #18 grams 08/15/21 [Rx Last Taken Unknown] clopidogrel 75 mg tablet (Plavix) 75 mg PO DAILY #90 tabs 08/15/21 [Rx Last Taken Unknown] cyclobenzaprine 5 mg tablet 5 mg PO QHS PRN muscle spasm #7 tabs 08/15/21 [Rx Last Taken Unknown] duloxetine 30 mg capsule,delayed release (Cymbalta) 60 mg PO DAILY #60 caps 08/15/21 [Rx Last Taken Unknown] fluticasone fur. 100 mcg-umeclid 62.5 mcg-vilant 25 mcg inhalat.powder (Trelegy Ellipta) 1 inh inhalation DAILY #60 ea 08/15/21 [Rx Last Taken Unknown] gabapentin 600 mg tablet See Rx Instructions .Route .COMPLEX ##180 08/15/21 [Rx Last Taken Unknown] olopatadine 0.2 % eye drops 1 drp ophthalmic (eye) DAILY #2.5 mL 08/15/21 [Rx Last Taken Unknown] dulaglutide 1.5 mg/0.5 mL subcutaneous pen injector (Trulicity) 1.5 mg (0.5 mL) subcut SA #2 mL 11/16/21 [Rx Last Taken Unknown] trazodone 100 mg tablet 100 mg PO QHS PRN insomnia #30 tabs 12/30/21 [Rx Last Taken Unknown] Allergy/AdvReac Type Severity Reaction Status Date / Time No Known Allergies Allergy Verified 02/12/22 20:30 Family History Mother Alcohol abuse Angina pectoris Anxiety Arthritis Depression Myocardial infarction Heart disease Mental disorder CVA (cerebral vascular accident) Suicide attempt Father Myocardial infarction Hypertension CVA (cerebral vascular accident) Grandmother Arthritis Surgical History History of appendectomy History of cholecystectomy History of coronary artery stent placement History of hysterectomy History of right common carotid artery stent placement Social History Smoking Status: Former smoker how long ago did patient quit smokin alcohol intake: never substance use type: does not use what type of physical activity do you participate in: none ROS ROS ED Constitutional Constitutional ED: Denies chills or fever(s) Eyes Eyes: Denies change in vision or diplopia ENT ENT ED: Denies rhinorrhea or sore throat Cardiovascular Cardiovascular: Denies chest pain, leg edema, orthopnea or palpitations Respiratory/Chest Respiratory/Chest: Reports as per HPI, cough, dyspnea and wheezing; Denies orthopnea Gastrointestinal Gastrointestinal: Denies abdominal pain, diarrhea, nausea or vomiting Genitourinary Genitourinary ED: Denies dysuria or hematuria Musculoskeletal Musculoskeletal: Denies back pain or neck pain Integumentary Denies abscess or rash Neurologic Neurologic: Denies headache(s), paresthesias or weakness Psychiatric Psychiatric: Denies anxiety or suicidal thoughts EXAM Physical Exam Const Vital Signs: 02/12/22 20:28 02/12/22 20:32 02/12/22 21:03 Temperature 97.1 F L 97.1 F L Temperature Source Temporal Temporal Pulse Rate 78 80 Respiratory Rate 14 23 H Respiratory Effort Respiratory Depth Respiratory Pattern Blood Pressure 104/48 L 104/48 L Blood Pressure Mean 66 66 Pulse Ox 99 97 96 Oxygen Delivery Method Nasal Cannula Nasal Cannula Nasal Cannula Oxygen Flow Rate (L/min) 4 4 4 02/12/22 21:03 02/12/22 21:14 Temperature Temperature Source Pulse Rate 78 Respiratory Rate 19 H Respiratory Effort Short of Breath Respiratory Depth Normal Respiratory Pattern Normal Tachypnea Blood Pressure Blood Pressure Mean Pulse Ox Oxygen Delivery Method Oxygen Flow Rate (L/min) Positive well nourished, well developed and obese General Appearance ED: well developed and NAD Nutritional Appearance: obese HEENT Reports moist mucous membranes normocephalic and atraumatic Eyes PERRL and EOMs intact bilaterally Neck full ROM and supple Resp normal respiratory effort Resp Narrative: Very diminished breath sounds throughout, symmetrically. Slight end expiratory wheezing. Trachea midline. Effort and Inspection: able to speak in complete sentences Cardio regular rate, regular rhythm and no murmurs Rate: Negative for tachycardic GI non-tender and non-distended Auscultation: normoactive bowel sounds Palpation: soft Back/Spine no CVA tenderness General Back: other FROM Extremity normal to inspection General Extremety ED: Negative for edema, pulses abnormal or tenderness General Extremity: Negative for edema or pulses abnormal Neuro oriented x3, CN's II-XII intact bilaterally and no sensory deficits noted Sensorium / Orientation: awake and alert Motor Exam: strength 5/5 throughout Skin no rashes or lesions noted and no wounds MDM MDM MDM Narrative Medical decision making narrative: 2 view chest x-ray obtained, on my interpretation shows a pleural effusion but no infiltrates. Radiology in agreement. She maintained good vital signs here without hypoxemia, she was given an albuterol treatment and I had respiratory do a flutter valve treatment on her, given the possibility that maybe she was mucous plugging and that was why she was transiently hypoxic. She states it did not seem to really help a lot but she was breathing fine and at baseline and feels like she is at baseline otherwise right now with no other acute symptoms. I do think she needs other testing of comfortable going home and following up with her doctor, I do not have prior x-ray to see if her pleural effusion is new or not, but I do not think it is causing any major symptoms right now and she can follow-up to see if it is new or not. She sees her doctor every 3 months or so and is due in March but if this is new she should follow-up sooner. Radiography Chest X-Ray - ED: 2 View, Read by ED Physician, No Infiltrates and Left Effusion Diagnostic Testing: Clinical Impression(s) from Imaging Studies Chest X-Ray 02/12/22 21:32 IMPRESSION: Moderate left pleural effusion with left lower lobe atelectasis. Electronically Signed: Azael Herrera MD at 22:00 EDT , Discharge Plan Triage Chief Complaint: Shortness of Breath ED Provider: Peter Lanier Dx/Rx/DC Orders Clinical Impression: Pleural effusion on left, COPD (chronic obstructive pulmonary disease) Instructions: ED Pleural Effusion Prescriptions: No Action (DME) Blood Glucose Test Strip See Rx Instructions .ROUTE .MEDSUPPLY Qty: 100 1RF Rx Instructions: As directed Twice daily (DME) blood-glucose meter Misc See Rx Instructions .ROUTE .MEDSUPPLY Qty: 1 0RF Rx Instructions: As directed (DME) lancets 30 gauge misc See Rx Instructions .ROUTE .MEDSUPPLY Qty: 200 3RF Rx Instructions: As directed Twice daily ferrous sulfate 325 mg (65 mg iron) tablet 325 mg PO DAILY Qty: 90 3RF duloxetine [Cymbalta] 30 mg capsule,delayed release(DR/EC) 60 mg PO DAILY Qty: 60 0RF Rx Instructions: Start by taking one capsule daily for one week then increase to two capsules daily. cyclobenzaprine 5 mg tablet 5 mg PO QHS PRN (Reason: muscle spasm) Qty: 7 0RF clopidogrel [Plavix] 75 mg tablet 75 mg PO DAILY Qty: 90 1RF Trelegy Ellipta 100-62.5-25 mcg blister with device 1 inh inhalation DAILY Qty: 60 1RF gabapentin 600 mg tablet See Rx Instructions .ROUTE .COMPLEX Qty: 180 2RF Dose Instruction: TAKE ONE TABLET BY MOUTH 3 TIMES DAILY Rx Instructions: TAKE ONE TABLET BY MOUTH 3 TIMES DAILY olopatadine 0.2 % drops 1 drp OPHTHALMIC DAILY Qty: 2.5 1RF Ventolin HFA 90 mcg/actuation HFA aerosol inhaler 2 puff INHALATION Q6H PRN (Reason: shortness of breath) Qty: 18 3RF trazodone 100 mg tablet 100 mg PO QHS PRN (Reason: insomnia) Qty: 30 1RF Januvia 100 mg tablet 100 mg PO DAILY Qty: 90 1RF atorvastatin 20 mg tablet 20 mg PO DAILY Qty: 90 1RF metformin 500 mg tablet 500 mg PO BID Qty: 180 3RF Trulicity 1.5 mg/0.5 mL pen injector 1.5 mg SC SA Qty: 2 2RF Primary Care Provider: Isak Taylor Referrals: Isak Taylor, DO [Primary Care Provider] - (All to see if you have record of having a left sided pleural effusion; if not, you have a moderate one now and should make an appointment to be seen as soon as possible rather than waiting until March.) Disposition Disposition: Home, Self Care
--- NOTE | 2022-02-12 21:32 | RAD_ITS ---
STUDY: X-RAY CHEST REASON FOR EXAM: Female, 66 years old. sob, copd TECHNIQUE: PA and lateral views of the chest. COMPARISON: 11/06/2020 FINDINGS: The lungs are clear and expanded. Moderate left pleural effusion with left lower lobe atelectasis. Normal size heart. Normal mediastinum and reese. Normal visualized pulmonary arteries. Normal visualized aortic arch and descending thoracic aorta. Normal visualized thoracic spine. Normal visualized ribs, clavicles, and shoulders. There is no demonstrated abnormality of the visualized soft tissue structures of the upper abdomen. RAD/Chest PA and Lateral IMPRESSION: Moderate left pleural effusion with left lower lobe atelectasis. Electronically Signed: Azael Herrera MD at 22:00 EDT ,
--- NOTE | 2022-02-12 21:43 | ED.RN ---
called patients daughter Britany at patients request to give her an update. Britany would like called when we have a decision whether patient will be admitted or discharged home.
== END 2022-02-12 23:26 | disposition home or self-care (01) ==
PROVIDERS: Emergency Provider Emergency Medicine; PCP Family Medicine; Visit Provider Emergency Medicine
DX: J90 Pleural effusion, not elsewhere classified (principal); J44.9 Chronic obstructive pulmonary disease, unspecified; E11.40 Type 2 diabetes mellitus with diabetic neuropathy, unspecified; R09.02 Hypoxemia; E78.5 Hyperlipidemia, unspecified; G89.29 Other chronic pain; M79.7 Fibromyalgia; E66.9 Obesity, unspecified; Z87.891 Personal history of nicotine dependence; Z86.73 Personal history of transient ischemic attack (TIA), and cerebral infarction without residual deficits; Z95.5 Presence of coronary angioplasty implant and graft
CPT/HCPCS: 71046; 94640; 94667; 99284; A4216

== ENCOUNTER 2022-02-28 18:52 | Emergency (ER) | payer MEDICARE, MEDICAID, SELFPAY ==
[2022-02-28 18:53] VITALS: BP 113/56; PULSE 110; RESP 18; TEMP 36.4; O2SAT 96; BMI 26.7
--- NOTE | 2022-02-28 20:10 | RAD_ITS ---
INDICATION: Fall one week ago. Right hip pain. EXAMINATION/TECHNIQUE: X-RAY - RIGHT XR Hip Unilateral with Pelvis when performed; 2-3 Views 3 VIEWS COMPARISON: None. FINDINGS: SOFT TISSUES: No soft tissue swelling or gas. No radiopaque foreign body. Mild vascular calcifications. BONES/JOINTS: No acute fracture or subluxation.. Normal alignment. Preservation of the joint space.. No sclerotic or destructive changes observed. RAD/HIP, UNI W/ Pelvis 2-3 Views IMPRESSION: Normal pelvis and right hip. Electronically Signed: Koffi Velez DO at 20:31 EDT ,
--- NOTE | 2022-02-28 21:25 | EDS_ITS ---
HPI History of Present Illness Chief Complaint: Lower Extremity Injury Narrative Narrative: 66-year-old female presenting with right hip pain. She points to the right lower gluteal region. She states he is having difficulty getting around because of it. She is able to get around and not using assistive devices. She states that it hurts when she walks. She states that she fell 6 days ago at home after tripping over her oxygen tubing. Has had progressive pain since then. Tylenol, ibuprofen, Aleve are not helping. PFSH PFS Medical History Allergic conjunctivitis Arthritis Back problem Cardiology follow-up encounter Chronic pain COPD (chronic obstructive pulmonary disease) COVID CVA (cerebral vascular accident) Diabetic neuropathy Diverticulitis large intestine Fibromyalgia Former smoker Hoarseness Hyperlipidemia MARY (iron deficiency anemia) Insomnia Leg cramps Lung cancer On home oxygen therapy Pneumonia Restless legs Shortness of breath on exertion Type 2 diabetes mellitus Uses wheelchair Wears dentures Wears glasses Home Medications atorvastatin 20 mg tablet 20 mg PO DAILY #90 tabs 07/29/20 [Rx Last Taken Unknown] metformin 500 mg tablet 500 mg PO BID #180 tabs 11/29/20 [Rx Last Taken Unknown] blood sugar diagnostic (Blood Glucose Test strips) #100 ea 12/29/20 [Rx Last Taken Unknown] blood-glucose meter #1 ea 12/29/20 [Rx Last Taken Unknown] lancets 30 gauge #200 ea 12/29/20 [Rx Last Taken Unknown] albuterol sulfate 90 mcg/actuation aerosol inhaler (Ventolin HFA) 2 puff i nhalation Q6H PRN shortness of breath #18 grams 08/15/21 [Rx Last Taken Unknown] clopidogrel 75 mg tablet (Plavix) 75 mg PO DAILY #90 tabs 08/15/21 [Rx Last Taken Unknown] fluticasone fur. 100 mcg-umeclid 62.5 mcg-vilant 25 mcg inhalat.powder (Trelegy Ellipta) 1 inh inhalation DAILY #60 ea 08/15/21 [Rx Last Taken Unknown] olopatadine 0.2 % eye drops 1 drp ophthalmic (eye) DAILY #2.5 mL 08/15/21 [Rx Last Taken Unknown] dulaglutide 1.5 mg/0.5 mL subcutaneous pen injector (Trulicity) 1.5 mg (0.5 mL) subcut SA #2 mL 11/16/21 [Rx Last Taken Unknown] trazodone 100 mg tablet 100 mg PO QHS PRN insomnia #30 tabs 12/30/21 [Rx Last Taken Unknown] miscellaneous medical supply (Blood Pressure Cuff) #1 ea 02/15/22 [Rx Last Taken Unknown] nebulizers (Aeroneb Go Nebulizer) #1 ea 02/15/22 [Rx Last Taken Unknown] albuterol sulfate 2.5 mg/3 mL (0.083 %) solution for nebulization 2.5 mg (3 mL) inhalation Q6H PRN shortness of breath or wheezing #180 mL 02/24/22 [Rx Last Taken Unknown] hydrocodone-acetaminophen 5-325mg 5mg-325mg 1 tab PO Q6H PRN pain 3 days #12 tabs 02/28/22 [Rx Last Taken Unknown] Allergy/AdvReac Type Severity Reaction Status Date / Time No Known Allergies Allergy Verified 02/28/22 18:52 Family History Mother Alcohol abuse Angina pectoris Anxiety Arthritis Depression Myocardial infarction Heart disease Mental disorder CVA (cerebral vascular accident) Suicide attempt Father Myocardial infarction Hypertension CVA (cerebral vascular accident) Grandmother Arthritis Surgical History History of appendectomy History of cholecystectomy History of coronary artery stent placement History of hysterectomy History of right common carotid artery stent placement Social History Smoking Status: Former smoker how long ago did patient quit smokin alcohol intake: never substance use type: does not use what type of physical activity do you participate in: none ROS ROS ED Constitutional Constitutional ED: Denies chills or fever(s) Eyes Eyes: Denies change in vision ENT ENT ED: Denies rhinorrhea or sore throat Cardiovascular Cardiovascular: Denies chest pain or palpitations Respiratory/Chest Respiratory/Chest: Denies cough or dyspnea Gastrointestinal Gastrointestinal: Denies abdominal pain or constipation Genitourinary Genitourinary ED: Denies dysuria or hematuria Musculoskeletal Musculoskeletal: Reports other Details: Right hip pain Integumentary Denies abscess or Abrasions Neurologic Neurologic: Denies headache(s) or paresthesias Psychiatric Psychiatric: Denies anxiety or depression EXAM Physical Exam Const Vital Signs: 02/28/22 18:53 Temperature 97.6 F L Temperature Source Temporal Pulse Rate 110 H Respiratory Rate 18 Blood Pressure 113/56 L Blood Pressure Mean 75 Pulse Ox 96 Oxygen Delivery Method Nasal Cannula Oxygen Flow Rate (L/min) 4 Positive well nourished General Appearance ED: NAD HEENT Reports moist mucous membranes normocephalic and atraumatic Eyes PERRL Neck full ROM Chest Wall inspection of chest normal and palpation of chest normal Resp normal respiratory effort Auscultation: Negative for rales, rhonchi or wheezes Cardio regular rate and regular rhythm GI non-tender Back/Spine no CVA tenderness Extremity Extremity Narrative: Tenderness to palpation at the right gluteal region. No hip deformity. Negative logroll. Patient able to flex and extend her right hip without any difficulty. Neuro oriented x3 Sensorium / Orientation: alert Motor Exam: strength 5/5 throughout Psych mental status grossly normal Skin no wounds MDM MDM MDM Narrative Medical decision making narrative: PrecautionsPatient presenting with right hip pain. I obtained an x-ray of the right hip which on my interpretation shows no acute fracture or subluxation. Patient able to flex and extend the hip without much difficulty. She states she is able to ambulate at home but has difficulty with ambulation secondary to pain. She reports history of mechanical fall after tripping over her oxygen tubing about 6 days ago. She is a follow-up appointment on . She states that [place] has helped her in the past for pain. She was given 1 here and a prescription for this until she can get to her appointment. Discussed. Impression: 1. Right hip contusion 2. Mechanical fall Lab Data Attestation: I reviewed the patient's lab results. Radiography Diagnostic Testing: Clinical Impression(s) from Imaging Studies Hip/Pelvis X-Ray 02/28/22 20:10 IMPRESSION: Normal pelvis and right hip. Electronically Signed: Koffi Velez DO at 20:31 EDT Reading Location ID and State: [address] [place] [address] Tel [phone], Service support , Discharge Plan Triage Chief Complaint: Lower Extremity Injury ED Provider: Rodolfo Sharma Dx/Rx/DC Orders Instructions: ED Hip Strain Prescriptions: New hydrocodone-acetaminophen 5-325 mg tablet 1 tab PO Q6H PRN (Reason: pain) 3 Days Qty: 12 0RF No Action (DME) Blood Glucose Test Strip See Rx Instructions .ROUTE .MEDSUPPLY Qty: 100 1RF Rx Instructions: As directed Twice daily (DME) blood-glucose meter Misc See Rx Instructions .ROUTE .MEDSUPPLY Qty: 1 0RF Rx Instructions: As directed (DME) lancets 30 gauge misc See Rx Instructions .ROUTE .MEDSUPPLY Qty: 200 3RF Rx Instructions: As directed Twice daily clopidogrel [Plavix] 75 mg tablet 75 mg PO DAILY Qty: 90 1RF Trelegy Ellipta 100-62.5-25 mcg blister with device 1 inh inhalation DAILY Qty: 60 1RF olopatadine 0.2 % drops 1 drp OPHTHALMIC DAILY Qty: 2.5 1RF Ventolin HFA 90 mcg/actuation HFA aerosol inhaler 2 puff INHALATION Q6H PRN (Reason: shortness of breath) Qty: 18 3RF trazodone 100 mg tablet 100 mg PO QHS PRN (Reason: insomnia) Qty: 30 1RF (DME) nebulizers [Aeroneb Go Nebulizer] Misc See Rx Instructions .Route Qty: 1 0RF Rx Instructions: As directed (DME) Blood Pressure Cuff Misc See Rx Instructions .Route Qty: 1 0RF Rx Instructions: Check blood pressure twice a day atorvastatin 20 mg tablet 20 mg PO DAILY Qty: 90 1RF metformin 500 mg tablet 500 mg PO BID Qty: 180 3RF Trulicity 1.5 mg/0.5 mL pen injector 1.5 mg SC SA Qty: 2 2RF albuterol sulfate 2.5 mg /3 mL (0.083 %) solution for nebulization 2.5 mg inhalation Q6H PRN (Reason: shortness of breath or wheezing) Qty: 180 0RF Primary Care Provider: Isak Taylor Referrals: Isak Taylor, DO [Primary Care Provider] - Disposition Disposition: Home, Self Care
[2022-02-28] MEDS: HYDROcodone Bitartrate/Apap 5/325 Tablet PO (21:27)
== END 2022-02-28 21:50 | disposition home or self-care (01) ==
PROVIDERS: Emergency Provider Student in an Organized Health Care Education/Training Program; PCP Family Medicine; Visit Provider Student in an Organized Health Care Education/Training Program
DX: S70.01XA Contusion of right hip, initial encounter (principal); J44.9 Chronic obstructive pulmonary disease, unspecified; E11.40 Type 2 diabetes mellitus with diabetic neuropathy, unspecified; W18.09XA Striking against other object with subsequent fall, initial encounter; E78.5 Hyperlipidemia, unspecified; G89.29 Other chronic pain; Z79.84 Long term (current) use of oral hypoglycemic drugs; Z79.02 Long term (current) use of antithrombotics/antiplatelets; Z86.73 Personal history of transient ischemic attack (TIA), and cerebral infarction without residual deficits; Z87.891 Personal history of nicotine dependence; Z95.5 Presence of coronary angioplasty implant and graft
CPT/HCPCS: 73502; 99283